=== PATIENT | male | born 2000 | race Caucasian/White ===

== ENCOUNTER 2020-10-28 11:20 | Emergency (ER) | payer MEDICAID, SELFPAY ==
[2020-10-28 11:21] VITALS: BP 145/90; PULSE 71; RESP 18; TEMP 36.5; O2SAT 98; BMI 34.4
--- NOTE | 2020-10-28 12:09 | CT_ITS ---
STUDY: CT ABDOMEN AND PELVIS WITH CONTRAST REASON FOR EXAM: Male, 20 years old. Abd pain -- IV PO Contrast RADIATION DOSAGE (If Supplied By Facility): CTDIvol = ( 17.76 ) mGy, DLP = ( 1169.64 ) mGycm TECHNIQUE: Transaxial images were obtained from the dome of the diaphragm to the symphysis pubis without oral contrast. Oral and amp;amp; IV Gastrografin and amp;amp; 100mL Isovue-300 was administered. Sagittal and coronal images were reconstructed. Individualized dose optimization techniques were used for this CT. COMPARISON: None. FINDINGS: The visualized lung bases are unremarkable. The visualized portions of the heart are within normal limits. Normal liver. Normal gallbladder and extrahepatic biliary system. Normal spleen. Normal pancreas. Normal bilateral adrenal glands. Normal right kidney. Normal left kidney. Normal visualized stomach. Normal small intestine. Normal colon. The appendix is visualized and appears normal. Normal abdominal aorta. Normal inferior vena cava. There is borderline retroperitoneal lymphadenopathy with enlarged nodes no greater than 10mm in the short axis diameter. Normal urinary bladder. Normal abdominal wall. Schmorl''s node seen along the anterior superior endplate of the L2 vertebrae. CT/Abdomen/Pelvis WITH Contrast IMPRESSION: Normal enhanced CT of the abdomen and pelvis. Electronically Signed: Kenji Forman MD at 14:38 EDT , Service support ,
--- NOTE | 2020-10-28 12:10 | EX.ED.DYSGE1 ---
HPI History of Present Illness Chief Complaint: Abd Pain Informant: patient and family Onset/Context/Timing Onset: Days Current Severity: Moderate Maximum Severity: Moderate Narrative Narrative: Patient presents with abdominal pain and bloating that has been ongoing for the past week. Patient states especially whenever he eats or drinks anything he gets upper abdominal pain and feel like his abdomen is bloating. He has not been able to eat or drink much. He did have vomiting this morning after eating a [employer] bar. Patient was seen at [facility] couple days ago. Abdominal x-ray revealed a nonspecific bowel gas pattern. He is referred for follow-up. Patient states he is able to schedule an appointment with the GI doctor but this is several months away. He was given Reglan at that visit but states his symptoms are worse. No fever or chills. No prior abdominal surgeries. Patient has had history of similar that seem to improve when taking Protonix, however that medication is not helping now. PFSH PFS Medical History GERD (gastroesophageal reflux disease) Home Medications hydrocodone-acetaminophen 1 tab PO Q6H PRN 3 Days #10 tab 10/28/20 [Rx Last Taken Unknown] sucralfate [Carafate] 1 g PO BID #20 tab 10/28/20 [Rx Last Taken Unknown] Allergy/AdvReac Type Severity Reaction Status Date / Time azithromycin [From Zithromax] Allergy Hives Verified 10/28/20 11:23 Surgical History Hx of tonsillectomy Social History Smoking Status: Current every day smoker tobacco type: cigarettes ROS ROS ED Constitutional Constitutional ED: Denies chills or fever(s) Eyes Eyes: Denies change in vision ENT ENT ED: Denies sore throat Cardiovascular Cardiovascular: Denies chest pain Respiratory/Chest Respiratory/Chest: Denies cough or dyspnea Gastrointestinal Gastrointestinal: Reports abdominal pain, nausea and vomiting; Denies diarrhea Genitourinary Genitourinary ED: Denies dysuria Musculoskeletal Musculoskeletal: Denies back pain Integumentary Denies rash Neurologic Neurologic: Denies headache(s) or weakness Psychiatric Psychiatric: Denies anxiety or depression Allergic/Immunologic Allergic/Immunologic ED: Denies urticaria EXAM Physical Exam Const Vital Signs: 10/28/20 11:21 Temperature 97.7 F L Temperature Source Temporal Pulse Rate 71 Respiratory Rate 18 Blood Pressure 145/90 H Blood Pressure Mean 108 Pulse Ox 98 Oxygen Delivery Method Room Air Positive well nourished and well developed General Appearance ED: well developed HEENT Reports normocephalic and head/scalp atraumatic Eyes PERRL and EOMs intact bilaterally Neck supple Chest Wall inspection of chest normal and palpation of chest normal Resp normal respiratory effort and clear to auscultation bilaterally Cardio regular rate and regular rhythm GI normal to inspection, nondistended, normoactive bowel sounds Palpation: soft and tender other (Mild diffuse tenderness to palpation. No guarding or rebound.) Extremity normal to inspection Neuro oriented x3 and no sensory deficits noted Sensorium / Orientation: alert Motor Exam: strength 5/5 throughout Psych mental status grossly normal Skin no rashes or lesions noted MDM MDM MDM Narrative Medical decision making narrative: Patient was given morphine and Zofran for pain. Labs and CT abdomen pelvis are obtained. Lab Data Attestation: I reviewed the patient's lab results. Labs: Laboratory Results - last 24 hr 10/28/20 10/28/20 12:23 12:23 WBC 5.7 RBC 5.63 Hgb 16.2 Hct 47.7 MCV 84.7 MCH 28.8 MCHC 34.0 RDW Std Deviation 37.1 RDW Coeff of Hedy 12.0 Plt Count 167 MPV 12.0 Immature Gran % (Auto) 0.200 Neut % (Auto) 58.9 Lymph % (Auto) 28.2 [place] % (Auto) 8.9 Eos % (Auto) 3.3 Baso % (Auto) 0.5 Absolute Neuts (auto) 3.4 Absolute Lymphs (auto) 1.61 Nucleated RBC % 0 Sodium 137 Potassium 3.7 Chloride 105 Carbon Dioxide 25.0 Anion Gap 7 BUN 16 Creatinine 0.84 Estim Creat Clear Calc 137.94 Est GFR (MDRD) Af Amer 147 Est GFR (MDRD) Non-Af 121 BUN/Creatinine Ratio 19.1 Glucose 73 L Calcium 9.1 Total Bilirubin 0.70 Direct Bilirubin 0.13 AST 20 ALT 31 Alkaline Phosphatase 65 Total Protein 7.7 Albumin 4.0 Globulin 3.7 Lipase 41 L Radiography Diagnostic Testing: Radiology Impression Abdomen/Pelvis CT 10/28/20 12:09 IMPRESSION: Normal enhanced CT of the abdomen and pelvis. Electronically Signed: Kenji Forman MD at 14:38 EDT , Service support , Treatment and Re-Evaluation Comments:: On repeat evaluation patient is resting comfortably. Labs are unremarkable. CT scan is unremarkable. Test results are discussed with patient and family at bedside. He is currently taking pantoprazole as well as Prozac. He has Reglan that he recently tried but it was not helping. He will be given some analgesics along with Carafate to see if this helps his symptoms. He will be referred to Dr. Dumont locally as his family has seen her in the past to see if patient might be able to get a scope to further delineate the patient's pain. Discharge Plan Triage Chief Complaint: Abd Pain ED Provider: Antonia Link Dx/Rx/DC Orders Clinical Impression: Abdominal pain Instructions: ED Epigastric Pain Uncertain Cause Prescriptions: New sucralfate [Carafate] 1 gram tablet 1 g PO BID Qty: 20 RF: 0 hydrocodone-acetaminophen 5-325 mg tablet 1 tab PO Q6H PRN (Reason: pain) 3 Days Qty: 10 RF: 0 Primary Care Provider: Care Physician,No Primary Referrals: Nikole Dumont MD [STAFF PHYSICIAN] - As soon as possible Care Physician,No Primary [Primary Care Provider] - Disposition Disposition: Home, Self Care
[2020-10-28] MEDS: Morphine 4 MG/ML Syringe IV (12:27)
[2020-10-28] MEDS: Ondansetron 4 MG/2 ML Vial IV (12:27)
[2020-10-28] MEDS: 0.9% Normal Saline 1,000 ML 150 ML IV (12:28)
[2020-10-28 12:40] LABS: Absolute Lymphocyte Count 1.61 X10^3/uL (0.83-4.51); Absolute Neutrophil Count 3.4 X10^3/uL (2.0-7.7); Basophil# 0.03 X10^3/uL; Basophil% 0.5 % (0-1); Eosinophil# 0.19 X10^3/uL; Eosinophils% 3.3 % (0-5); Hematocrit 47.7 % (40-54); Hemoglobin 16.2 g/dL (13.0-16.5); Lymphocyte # 1.61 X10^3/ul (0.83-4.51); Lymphocyte % 28.2 % (19-41); Mean Corpuscular Hgb 28.8 pg (27.0-32.0); Mean Corpuscular Volume 84.7 fL (80-94); Monocyte# 0.51 X10^3/uL; Monocyte% 8.9 % (0-10); NRBC Flagged by Analyzer 0 % (0-5); Neutrophil # 3.36 X10^3/uL (2.7-7.7); Neutrophil % 58.9 % (47-70); Platelet Count 167 K/mm3 (150-450); RBC Distribution Width SD 37.1 fl (35.1-43.9); Red Blood Count 5.63 M/mm3 (4.6-6.2); White Blood Count 5.7 K/mm3 (4.4-11.0)
[2020-10-28 12:52] LABS: AST(SGOT) 20 U/L (15-37); Alanine Aminotransfer ALT/SGPT 31 U/L (16-61); Alkaline Phosphatase 65 U/L (45-117); Anion Gap 7 (5-15); BUN 16 mg/dL (7-18); BUN/Creat Ratio 19.1 RATIO (10-20); Bilirubin, Direct 0.13 mg/dL (0.00-0.30); Calcium,Total 9.1 mg/dL (8.5-10.1); Chloride 105 mmol/L (98-107); Creatinine, Serum 0.84 mg/dL (0.70-1.30); EST Glomerular Filtration Rate 121 mL/min (>60); Est Glom Filt Rate - Afr Amer 147 mL/min (>60); Estimated Creatinine Clearance 137.94 ml/min; Globulin 3.7 g/dL (2.2-4.2); Glucose 73 mg/dL (74-106); Lipase 41 U/L (73-393); Potassium 3.7 mmol/L (3.5-5.1); Protein, Total 7.7 g/dL (6.4-8.2); Sodium Level 137 mmol/L (136-145)
[2020-10-28 15:32] VITALS: BP 148/68; PULSE 74; RESP 16; O2SAT 98
== END 2020-10-28 15:36 | disposition home or self-care (01) ==
PROVIDERS: Emergency Provider Emergency Medicine
DX: R10.9 Unspecified abdominal pain (principal); F17.210 Nicotine dependence, cigarettes, uncomplicated; K21.9 Gastro-esophageal reflux disease without esophagitis; Z79.899 Other long term (current) drug therapy
CPT/HCPCS: 74177; 80048; 80076; 83690; 85025; 96361; 96374; 96375; 99283; J7030; Q9967; A4216; J2405

== ENCOUNTER 2020-10-30 12:54 | Emergency (ER) | payer MEDICAID, SELFPAY ==
[2020-10-30 12:55] VITALS: BP 131/88; PULSE 81; RESP 15; TEMP 36.6; O2SAT 98; BMI 34.4
[2020-10-30 13:11] VITALS: O2SAT 99
--- NOTE | 2020-10-30 14:26 | EDS_ITS ---
HPI HPI - GI History of Present Illness Chief Complaint: Abd Pain Informant: patient and parent Abdominal Pain/Flank Pain Onset: Today (Pain today was worse and associated with increased shortness of breath) Context: Sudden Onset Timing: Continuous Quality: Burning Location: Epigastric Current Severity: Mild Maximum Severity: Severe Worsened by: Nothing Relieved by: Nothing Nausea/Vomiting/Emesis GI Symptom: Negative for Nausea and Vomiting Diarrhea/Melena/Hematochezia GI Symptom: Negative for Diarrhea, Melena and Hematochezia Associated Symptoms Associated Symptoms: Negative for Dysuria, Frequency and Hematuria Narrative Narrative: Patient is a 20-year-old male who presents with epigastric pain. He describes fullness. This occurs after he eats. He states the fullness was worse today and he had increased shortness of breath. He had no other symptoms. He denies fever, chills night sweats. He denies cough. He denies chest discomfort. He denies sour eructation. Denies black or maroon-colored stool. Denies blood in his stool. He is not on an anticoagulant or antiplatelet medicine. He denies bruising easily. He was sent in by Dr. Dumont. He is scheduled to have an EGD performed by Dr. Dumont this coming November 04 Prior similar symptoms: Yes Recent Illness/Hospitalization: Yes [facility] Medical History GERD (gastroesophageal reflux disease) Home Medications hydrocodone-acetaminophen 1 tab PO Q6H PRN 3 Days #10 tab 10/28/20 [Rx Last Taken Unknown] sucralfate [Carafate] 1 g PO BID #20 tab 10/28/20 [Rx Last Taken Unknown] Allergy/AdvReac Type Severity Reaction Status Date / Time azithromycin [From Zithromax] Allergy Hives Verified 10/30/20 12:55 Surgical History Hx of tonsillectomy Social History (Updated 10/30/20 @ 14:[address] Javier Dee MD) household members: family Smoking Status: Current every day smoker tobacco type: cigarettes alcohol intake: never substance use type: does not use ROS ROS ED Constitutional Constitutional ED: Denies chills, fever(s), subjective or sweats ENT ENT ED: Reports other Details: Denies loss of taste or smell ; Denies ear pain, rhinorrhea or sore throat Cardiovascular Cardiovascular: Denies chest pain, palpitations or racing heartbeat Respiratory/Chest Respiratory/Chest: Reports dyspnea; Denies cough, dyspnea on exertion or sputum Gastrointestinal Gastrointestinal: Reports abdominal pain; Denies diarrhea, nausea or vomiting Genitourinary Genitourinary ED: Denies dysuria, hematuria or urinary frequency Musculoskeletal Musculoskeletal: Denies arthralgias, myalgias or neck pain Integumentary Denies rash Neurologic Neurologic: Denies paresthesias or weakness Hematologic/Lymphatic Hematologic/Lymphatic: Denies easy bleeding or easy bruising EXAM Physical Exam Const Vital Signs: 10/30/20 12:55 Temperature 97.8 F Temperature Source Temporal Pulse Rate 81 Respiratory Rate 15 Blood Pressure 131/88 H Blood Pressure Mean 102 Pulse Ox 98 Oxygen Delivery Method Room Air Positive well nourished, well developed and obese General Appearance ED: well developed Nutritional Appearance: obese HEENT Reports TM's clear and moist mucous membranes normocephalic and atraumatic Tympanic Membrane ED: Yes TM's clear Eyes PERRL and EOMs intact bilaterally General Eye ED: Negative for pale conjunctiva or scleral icterus Neck no lymphadenopathy, supple and no JVD Resp normal respiratory effort and clear to auscultation bilaterally Cardio regular rate, regular rhythm, S1 normal heart sound, S2 normal heart sound and no murmurs GI non-distended and no masses Auscultation: normoactive bowel sounds Palpation: soft and tender epigastric Back/Spine no CVA tenderness Extremity full ROM General Extremety ED: Yes edema General Extremity: edema Neuro CN's II-XII intact bilaterally Sensorium / Orientation: alert, oriented to person, oriented to place and oriented to time Psych mental status grossly normal Skin no wounds Lesions: no lesions Rashes: no rashes MDM MDM MDM Narrative Medical decision making narrative: Static the ED to legal up patient had a CAT scan on Wednesday. Spoke with the radiologist. He did review case. There is no evidence of superior mesenteric artery syndrome. Since patient had this pain before but this was worse today and the shortness of breath was worse no further work-up is needed. Patient needs an EGD which he is scheduled for. Since he denies black or maroon stool and is hemodynamically stable no further testing was done. Patient is PERC negative. Patient's history is not consistent with cardiac disease either. Discharge Plan Triage Chief Complaint: Abd Pain ED Provider: Javier Dee Dx/Rx/DC Orders Clinical Impression: Chronic epigastric pain Instructions: ED Epigastric Pain Uncertain Cause Prescriptions: No Action sucralfate [Carafate] 1 gram tablet 1 g PO BID Qty: 20 RF: 0 hydrocodone-acetaminophen 5-325 mg tablet 1 tab PO Q6H PRN (Reason: pain) 3 Days Qty: 10 RF: 0 Primary Care Provider: Care Physician,No Primary Referrals: Nikole Dumont MD [STAFF PHYSICIAN] - Keep [facility] appointment Care Physician,No Primary [Primary Care Provider] - Disposition Disposition: Home, Self Care
== END 2020-10-30 14:55 | disposition home or self-care (01) ==
PROVIDERS: Emergency Provider Emergency Medicine
DX: R10.13 Epigastric pain (principal); G89.29 Other chronic pain; R06.00 Dyspnea, unspecified; E66.9 Obesity, unspecified; Z68.34 Body mass index [BMI] 34.0-34.9, adult; K21.9 Gastro-esophageal reflux disease without esophagitis; F17.210 Nicotine dependence, cigarettes, uncomplicated
CPT/HCPCS: 99282